=== PATIENT | female | born 1990 | race American Indian/Alaskan Native ===

== ENCOUNTER 2019-10-12 22:25 | Emergency (ER) | payer SELFPAY ==
[2019-10-12 22:39] VITALS: BP 142/50
[2019-10-12] MEDS ORDERED: IPRATROPIUM 0.02% NEBU 2.5 ML IH ONE ×2 (22:49→23:06)
[2019-10-12] MEDS ORDERED: ALBUTEROL 2.5 MG/3 ML NEBU IH ONE ×2 (22:49)
--- NOTE | 2019-10-12 23:52 | Emergency Department Report ---
ED Asthma HPI - General Chief Complaint: Adult Asthma Stated Complaint: ASTHMA Time Seen by Provider: 10/12/19 23:42 Source: patient Mode of arrival: Ambulatory Limitations: No Limitations - History of Present Illness Initial Comments: 29-year-old -[place] female comes in reporting wheezing and shortness of breath since this morning. Patient states that she is ran out of her medications. Patient states she has not had an attack for several months. She denies any fever chills no nausea no vomiting no chest pain. She is not aware of any of her triggers. Has not been hospitalized for her asthma. Complaint: "asthma attack", wheezing -: This morning Severity: moderate Context: ran out of meds Treatments Prior to Arrival: inhaled bronchodilator - Related Data Current Asthma Therapy: inhaled bronchodilator Previous Rx's Medication Instructions Recorded Last Taken Type Albuterol Sulfate [Proventil Hfa] 6.7 gm IH QID PRN #1 hfa.aer.ad 10/12/19 Unknown Rx predniSONE [Deltasone] 40 mg PO QDAY 5 Days #10 tab 10/12/19 Unknown Rx Allergies Allergy/AdvReac Type Severity Reaction Status Date / Time No Known Allergies Allergy Unverified 10/12/19 22:39 ED Review of Systems ROS: Stated complaint: ASTHMA Other details as noted in HPI Comment: All other systems reviewed and negative ED Past Medical Hx - Past Medical History Previous Medical History?: Yes Hx Asthma: Yes - Surgical History Past Surgical History?: No - Social History Smoking Status: Current Every Day Smoker Substance Use Type: Marijuana - Medications Home Medications: Home Medications Medication Instructions Recorded Confirmed Last Taken Type Albuterol Sulfate [Proventil Hfa] 6.7 gm IH QID PRN #1 hfa.aer.ad 10/12/19 Unknown Rx predniSONE [Deltasone] 40 mg PO QDAY 5 Days #10 tab 10/12/19 Unknown Rx ED Physical Exam - General Limitations: No Limitations General appearance: alert, in no apparent distress - Head Head exam: Present: atraumatic, normocephalic - Eye Eye exam: Present: normal appearance - ENT ENT exam: Present: mucous membranes moist - Neck Neck exam: Present: normal inspection - Respiratory Respiratory exam: Present: normal lung sounds bilaterally. Absent: respiratory distress - Cardiovascular Cardiovascular Exam: Present: regular rate, normal rhythm. Absent: systolic murmur, diastolic murmur, rubs, gallop - Back Exam Back exam: Present: normal inspection, full ROM - Neurological Exam Neurological exam: Present: alert, oriented X3, normal gait - Psychiatric Psychiatric exam: Present: normal affect, normal mood ED Course Vital Signs 10/12/19 10/12/19 22:32 23:30 Temperature 97.8 F Pulse Rate 93 H Pulse Rate [ 101 H Bilateral Throughout] Respiratory 18 Rate Respiratory 16 Rate [Bilateral Throughout] Blood Pressure 142/50 O2 Sat by Pulse 98 Oximetry ED Medical Decision Making - Medical Decision Making 29-year-old -[place] female comes in reporting wheezing and shortness of breath since this morning. Patient states that she is ran out of her medications. Patient states she has not had an attack for several months. She denies any fever chills no nausea no vomiting no chest pain. She is not aware of any of her triggers. Has not been hospitalized for her asthma. Patient was evaluated by respiratory therapist and states that she was wheezing and was initiated albuterol 5 mg Atrovent 1 mg and patient to be discharged home on prednisone. As well as a prescription for albuterol inhaler. Patient is also been referred to a primary care provider. Critical care attestation.: If time is entered above; I have spent that time in minutes in the direct care of this critically ill patient, excluding procedure time. ED Disposition Clinical Impression: Asthma Disposition: [id number]-01 TO HOME OR SELFCARE Is pt being admited?: No Does the pt Need Aspirin: No Condition: Stable Instructions: Asthma (ED) Additional Instructions: Please complete your prednisone as prescribed. Use your inhaler as needed. Is very important for you to follow-up with your primary care provider. Prescriptions: predniSONE [Deltasone] 40 mg PO QDAY 5 Days #10 tab Albuterol Sulfate [Proventil Hfa] 6.7 gm IH QID PRN #1 hfa.aer.ad PRN Reason: Wheezing Referrals: PRIMARY CARE, [Primary Care Provider] - 3-5 Days [facility] [Provider Group] - 3-5 Days Forms: Work/School Release Form(ED)
== END 2019-10-12 23:55 | disposition home or self-care (01) ==
LOC: ED 22:25
DX: J45.909 Unspecified asthma, uncomplicated (principal); F17.200 Nicotine dependence, unspecified, uncomplicated; F12.10 Cannabis abuse, uncomplicated
CPT/HCPCS: 94640; 94644; 99282

== ENCOUNTER 2020-02-25 12:30 | Emergency (ER) | payer SELFPAY ==
[2020-02-25 12:47] VITALS: BP 139/80
--- NOTE | 2020-02-25 13:45 | Event Note ---
ED Screening Note Date of service: 02/25/20 Time: 13:44 ED Screening Note: Patient presents with a cyst under her right arm, abdominal pain, possible exposure to STD and severe back pain. This initial assessment/diagnostic orders/clinical plan/treatment(s) is/are subject to change based on patients health status, clinical progression and re- assessment by fellow clinical providers in the ED. Further treatment and workup at subsequent clinical providers discretion. Patient/guardian urged not to elope from the ED as their condition may be serious if not clinically assessed and managed. Initial orders include: Urinalysis, urine test
[2020-02-25 14:06] LABS: HCG Qualitative,Urine Negative (Negative)
[2020-02-25 14:28] LABS: Bacteria,Urine 1+ /HPF (Negative); Bilirubin,Urine NEG (Negative); Blood,Urine NEG (Negative); Color,Urine Yellow (Yellow); Mucus,Urine 1+ /HPF
--- NOTE | 2020-02-25 16:53 | Emergency Department Report ---
ED General Adult HPI - General Chief complaint: Urogenital-Female Stated complaint: EXTREME BACK PAIN/UNDERARM PAIN Time Seen by Provider: 02/25/20 12:59 Source: patient Mode of arrival: Ambulatory Limitations: No Limitations - History of Present Illness Initial comments: Patient presents with a cyst under her right arm over the past week that bit has been causing her severe pain. She reports pain is aggravated with any movement. She reports she also is concerned she may have a urinary tract infection due to dysuria, urinary frequency and urgency. She denies any associated fever, chills, night sweats, headache, dizziness, blurry vision, nausea,, diarrhea, chest pain, shortness of breath. She reports some back pain. But her main complaint was the abscess on her right arm. Pain is 10 out of 10. - Related Data Previous Rx's Medication Instructions Recorded Last Taken Type Albuterol Sulfate [Proventil Hfa] 6.7 gm IH QID PRN #1 hfa.aer.ad 10/12/19 Unknown Rx predniSONE [Deltasone] 40 mg PO QDAY 5 Days #10 tab 10/12/19 Unknown Rx Naproxen [Naprosyn] 500 mg PO BID #20 tablet 10/25/19 Unknown Rx Acetaminophen with Codeine 1 each PO Q6HR #12 tablet 02/25/20 Unknown Rx [Acetaminophen-Codeine #4 TAB] Sulfamethoxazole/Trimethoprim 1 each PO BID #20 tablet 02/25/20 Unknown Rx [Bactrim DS TAB] Allergies Allergy/AdvReac Type Severity Reaction Status Date / Time No Known Allergies Allergy Verified 02/25/20 12:44 ED Review of Systems ROS: Stated complaint: EXTREME BACK PAIN/UNDERARM PAIN Other details as noted in HPI Constitutional: denies: chills, fever Eyes: denies: eye pain, eye discharge, vision change ENT: denies: ear pain, throat pain Respiratory: denies: cough, shortness of breath, wheezing Cardiovascular: denies: chest pain, palpitations Endocrine: no symptoms reported Gastrointestinal: denies: abdominal pain, nausea, diarrhea Genitourinary: denies: urgency, dysuria, discharge Musculoskeletal: denies: back pain, joint swelling, arthralgia Skin: as per HPI, other (Abscess). denies: rash, lesions Neurological: denies: headache, weakness, paresthesias Psychiatric: denies: anxiety, depression Hematological/Lymphatic: denies: easy bleeding, easy bruising ED Past Medical Hx - Past Medical History Hx Asthma: Yes - Surgical History Past Surgical History?: No - Social History Smoking Status: Never Smoker Substance Use Type: None - Medications Home Medications: Home Medications Medication Instructions Recorded Confirmed Last Taken Type Albuterol Sulfate [Proventil Hfa] 6.7 gm IH QID PRN #1 hfa.aer.ad 10/12/19 Unknown Rx predniSONE [Deltasone] 40 mg PO QDAY 5 Days #10 tab 10/12/19 Unknown Rx Naproxen [Naprosyn] 500 mg PO BID #20 tablet 10/25/19 Unknown Rx Acetaminophen with Codeine 1 each PO Q6HR #12 tablet 02/25/20 Unknown Rx [Acetaminophen-Codeine #4 TAB] Sulfamethoxazole/Trimethoprim 1 each PO BID #20 tablet 02/25/20 Unknown Rx [Bactrim DS TAB] ED Physical Exam - General Limitations: No Limitations General appearance: alert, in no apparent distress - Head Head exam: Present: atraumatic, normocephalic - Eye Eye exam: Present: normal appearance, PERRL, EOMI Pupils: Present: normal accommodation - ENT ENT exam: Present: normal exam, normal orophraynx, mucous membranes moist - Neck Neck exam: Present: normal inspection, full ROM. Absent: tenderness, meningismus - Respiratory Respiratory exam: Present: normal lung sounds bilaterally. Absent: respiratory distress, wheezes, rales, rhonchi, stridor - Cardiovascular Cardiovascular Exam: Present: regular rate, normal rhythm, normal heart sounds. Absent: systolic murmur, diastolic murmur, rubs, gallop - GI/Abdominal GI/Abdominal exam: Present: soft, normal bowel sounds. Absent: distended, tenderness, guarding, rebound, rigid - Extremities Exam Extremities exam: Present: normal inspection, full ROM, tenderness (Tenderness palpation of the right axilla with a 4 cm fluctuant abscess. No crepitus.). Absent: calf tenderness - Back Exam Back exam: Present: normal inspection, full ROM. Absent: tenderness, CVA tenderness (R), CVA tenderness (L) - Neurological Exam Neurological exam: Present: alert, oriented X3, CN II-XII intact, normal gait - Psychiatric Psychiatric exam: Present: normal affect, normal mood - Skin Skin exam: Present: warm, dry, intact, normal color. Absent: rash ED Course Vital Signs 02/25/20 12:46 Temperature 98.0 F Pulse Rate 102 H Respiratory 19 Rate Blood Pressure 139/80 O2 Sat by Pulse 99 Oximetry - I & D Right Shoulder Type of Procedure: Complex Site: Right axilla Blade Size: 11 I & D Procedure: betadine prep Progress: The area was first cleaned with Betadine prep, I then injected 1% lidocaine without epinephrine approximately 3 mL was used. I then used a 11 blade to make a 1 cm incision and a copious amount of purulent drainage was expressed. The wound was then deloculated and irrigated. 1 inch iodoform gauze was then placed in the wound approximately 3 cm used. Patient tolerated this well. Less than 5 mL of blood loss. ED Medical Decision Making - Medical Decision Making Patient presented the emergency department a large abscess to the right axilla. The abscess was drained without complication. Patient tolerated this well. Patient will be given Bactrim and pain medication and outpatient follow-up with primary care doctor. The patient's urine was consistent with urinary tract infection which the Bactrim will cover. She was instructed to return to the ER immediately develops any change or worsening symptoms. She verbalized understand the diagnosis, treatment and follow-up instructions and all of her questions were answered. - Differential Diagnosis Abscess, cellulitis, insect bite Critical care attestation.: If time is entered above; I have spent that time in minutes in the direct care of this critically ill patient, excluding procedure time. ED Disposition Clinical Impression: Abscess of right axilla Acute cystitis Qualifiers: Hematuria presence: with hematuria Qualified Code(s): N30.01 - Acute cystitis with hematuria Disposition: TO HOME OR SELFCARE Is pt being admited?: No Condition: Stable Instructions: Skin Abscess, Incision and Drainage, Care After Prescriptions: Acetaminophen with Codeine [Acetaminophen-Codeine #4 TAB] 1 each PO Q6HR #12 tablet Sulfamethoxazole/Trimethoprim [Bactrim DS TAB] 1 each PO BID #20 tablet Referrals: [facility] [Provider Group] - 3-5 Days Time of Disposition: 16:54
== END 2020-02-25 17:14 | disposition home or self-care (01) ==
LOC: ED 12:30
DX: N30.00 Acute cystitis without hematuria (principal); L02.411 Cutaneous abscess of right axilla; J45.909 Unspecified asthma, uncomplicated; Z79.899 Other long term (current) drug therapy
CPT/HCPCS: 81001; 81025; 87086

== ENCOUNTER 2020-04-05 00:36 | Emergency (ER) | payer SELFPAY ==
[2020-04-05 00:51] VITALS: BP 152/100
[2020-04-05 01:41] LABS: Basophils # (Auto) 0.1 K/mm3 (0.0-0.1); Basophils % (Auto) 1.1 % (0.0-1.8); Eosinophils # (Auto) 0.5 K/mm3 (0.0-0.4); Eosinophils % (Auto) 6.1 % (0.0-4.3); Hematocrit 40.8 % (30.3-42.9); Hemoglobin 13.8 gm/dl (10.1-14.3); Lymphocytes # (Auto) 3.3 K/mm3 (1.2-5.4); Lymphocytes % (Auto) 42.3 % (13.4-35.0); Mean Corpuscular HGB Conc 34 % (30-34); Mean Corpuscular Volume 91 fl (79-97); Monocytes # (Auto) 0.6 K/mm3 (0.0-0.8); Monocytes % (Auto) 7.6 % (0.0-7.3); Platelet Count 352 K/mm3 (140-440); Red Blood Count 4.47 M/mm3 (3.65-5.03); Red Cell Distribution Width 13.4 % (13.2-15.2)
--- NOTE | 2020-04-05 01:43 | Emergency Department Report ---
ED General Adult HPI - General Chief complaint: Abdominal Pain Stated complaint: ABDOMINAL/BACK PAIN Time Seen by Provider: 04/05/20 01:37 Source: patient Mode of arrival: Ambulatory Limitations: No Limitations - History of Present Illness Initial comments: 30-year-old -[place] female patient presents with complaints of left flank pain radiating to her left side and left lower abdomen for the past few days. She denies any dysuria/hematuria, history of abdominal surgeries, nausea/vomiting/diarrhea, constipation, or fever/chills/sweats. She does admit to urinary frequency. No shortness of breath or chest pain per patient. Also denies history of kidney stones. Patient rates her pain as a 7/10 in severity. -: Gradual - Related Data Previous Rx's Medication Instructions Recorded Last Taken Type Albuterol Sulfate [Proventil Hfa] 6.7 gm IH QID PRN #1 hfa.aer.ad 10/12/19 Unknown Rx predniSONE [Deltasone] 40 mg PO QDAY 5 Days #10 tab 10/12/19 Unknown Rx Naproxen [Naprosyn] 500 mg PO BID #20 tablet 10/25/19 Unknown Rx Acetaminophen with Codeine 1 each PO Q6HR #12 tablet 02/25/20 Unknown Rx [Acetaminophen-Codeine #4 TAB] Sulfamethoxazole/Trimethoprim 1 each PO BID #20 tablet 02/25/20 Unknown Rx [Bactrim DS TAB] Allergies Allergy/AdvReac Type Severity Reaction Status Date / Time No Known Allergies Allergy Verified 02/25/20 12:44 ED Review of Systems ROS: Stated complaint: ABDOMINAL/BACK PAIN Other details as noted in HPI Constitutional: denies: chills, diaphoresis, fever, malaise, weakness Respiratory: denies: cough, shortness of breath Cardiovascular: denies: chest pain Gastrointestinal: abdominal pain. denies: nausea, vomiting, diarrhea, constipation Genitourinary: frequency. denies: urgency, dysuria, hematuria, discharge, abnormal menses Skin: denies: rash, lesions, change in color Neurological: denies: abnormal gait Hematological/Lymphatic: denies: easy bleeding, easy bruising ED Past Medical Hx - Past Medical History Hx Asthma: Yes - Surgical History Past Surgical History?: No - Social History Smoking Status: Current Every Day Smoker Substance Use Type: None - Medications Home Medications: Home Medications Medication Instructions Recorded Confirmed Last Taken Type Albuterol Sulfate [Proventil Hfa] 6.7 gm IH QID PRN #1 hfa.aer.ad 10/12/19 Unknown Rx predniSONE [Deltasone] 40 mg PO QDAY 5 Days #10 tab 10/12/19 Unknown Rx Naproxen [Naprosyn] 500 mg PO BID #20 tablet 10/25/19 Unknown Rx Acetaminophen with Codeine 1 each PO Q6HR #12 tablet 02/25/20 Unknown Rx [Acetaminophen-Codeine #4 TAB] Sulfamethoxazole/Trimethoprim 1 each PO BID #20 tablet 02/25/20 Unknown Rx [Bactrim DS TAB] ED Physical Exam - General Limitations: No Limitations General appearance: alert, in no apparent distress - Head Head exam: Present: atraumatic, normocephalic - Eye Eye exam: Present: normal appearance. Absent: scleral icterus - Neck Neck exam: Present: normal inspection - Respiratory Respiratory exam: Present: normal lung sounds bilaterally. Absent: respiratory distress - Cardiovascular Cardiovascular Exam: Present: tachycardia (mild) - Back Exam Back exam: Present: full ROM, CVA tenderness (L). Absent: CVA tenderness (R), paraspinal tenderness, vertebral tenderness - Neurological Exam Neurological exam: Present: alert, oriented X3, normal gait - Psychiatric Psychiatric exam: Present: normal affect, normal mood ED Course Vital Signs 04/05/20 00:48 Temperature 98.1 F Pulse Rate 113 H Respiratory 14 Rate Blood Pressure 152/100 O2 Sat by Pulse 99 Oximetry ED Medical Decision Making - Lab Data Result diagrams: 04/05/20 01:26 04/05/20 01:26 Critical care attestation.: If time is entered above; I have spent that time in minutes in the direct care of this critically ill patient, excluding procedure time. ED Disposition Clinical Impression: Left flank pain Disposition: Z-07 ELOPED Is pt being admited?: No Condition: Stable Instructions: Abdominal Pain (ED) Referrals: PRIMARY CARE, [Primary Care Provider] - 3-5 Days
[2020-04-05 02:05] LABS: Alanine Aminotransferase 10 units/L (7-56); Albumin 4.3 g/dL (3.9-5); Blood Urea Nitrogen 9 mg/dL (7-17); Hemolysis Index 8
[2020-04-05 02:16] LABS: BUN/Creatinine Ratio 15
[2020-04-05 03:51] LABS: Bilirubin,Urine NEG (Negative); Blood,Urine NEG (Negative); Color,Urine Yellow (Yellow); Protein,Urine <15 mg/dL mg/dL (Negative); Urobilinogen,Urine < 2.0 mg/dL (<2.0)
== END 2020-04-05 07:00 | disposition left against medical advice (07) ==
LOC: ED 00:36
DX: R10.9 Unspecified abdominal pain (principal); J45.909 Unspecified asthma, uncomplicated; F17.200 Nicotine dependence, unspecified, uncomplicated; Z79.899 Other long term (current) drug therapy
CPT/HCPCS: 36415; 80053; 81001; 83690; 84703; 85025; 99283